=== PATIENT | male | born 1955 | race Caucasian/White ===

== ENCOUNTER 2023-10-28 14:51 | Outpatient (CLI) | payer MEDICARE, BC, SELFPAY ==
--- NOTE | ~2023-10-28 | XR_ITS ---
XR shoulder LT min 2V Ordering provider: NAIDA Sesay History: . lifting injury 10 days ago extensive bruising left humerus . Comparison: None. FINDINGS: BONES: possibility of fracture in the area of the insertion of the supraspinatus tendon cannot be exc luded. JOINT SPACES: The acromioclavicular joint shows osteoarthritic changes.. The glenohumeral joint is no rmal. Osteoarthritic changes in the area of the insertion of the supraspinatus tendon. SOFT TISSUES: Normal. IMPRESSION: Possible fracture in that area of the insertion of the supraspinatus tendon. Reviewed, dictated and finalized at location A.
--- NOTE | ~2023-10-28 | XR_ITS ---
XR humerus LT Ordering provider: NAIDA Sesay History: . lifting injury 10 days ago extensive bruising left humerus . Comparison: None. FINDINGS: BONES: Possible fracture in that area of the insertion of the supraspinatous tendon. JOINT SPACES: Mild osteoarthritic changes of the acromioclavicular joint. Degenerative changes at the insertion of the supraspinatous tendon. SOFT TISSUES: Normal. IMPRESSION: Possible fracture in the area of the insertion of the supraspinatus tendon. Reviewed, dictated and finalized at location A.
== END 2023-10-28 14:52 ==
PROVIDERS: PCP Physician Assistant; Visit Provider Physician Assistant
DX: M79.622 Pain in left upper arm (principal); X50.9XXA Other and unspecified overexertion or strenuous movements or postures, initial encounter
CPT/HCPCS: 73030; 73060

== ENCOUNTER 2023-11-24 14:19 | Outpatient (CLI) | payer MEDICARE, BC, SELFPAY ==
--- NOTE | ~2023-11-24 | XR_ITS ---
XR abdomen/kub 1V Ordering provider: Sherley Matt, PAC History: . right side abd pain hx of kidney stones . Comparison: None. FINDINGS: BOWEL: Nonobstructive bowel gas pattern. ORGANOMEGALY: None. SIGNIFICANT PATHOLOGIC CALCIFICATIONS: Tiny stone in the right kidney lower pole. OTHER: Bilateral hip arthroplasty. Degenerative changes of the spine. No free air is seen under the d iaphragm. IMPRESSION: NO ACUTE ABDOMINAL FINDINGS. Tiny stone in the right kidney lower pole. CT is better for evaluation. Reviewed, dictated and finalized at location A.
== END 2023-11-24 14:20 ==
LOC: MICIMG 14:23
PROVIDERS: PCP Physician Assistant; Visit Provider Physician Assistant
DX: R10.9 Unspecified abdominal pain (principal); Z87.442 Personal history of urinary calculi
CPT/HCPCS: 74018

== ENCOUNTER 2024-05-20 16:00 | Outpatient (CLI) | payer MEDICARE, BC, SELFPAY ==
--- NOTE | ~2024-05-20 | MR_ITS ---
EXAMINATION: MR shoulder RT wo con DATE: 05/20/2024 16:30 INDICATION: Right shoulder bicipital tendinitis with 4 months of right shoulder pain and limited rang e of motion TECHNIQUE: Magnetic resonance imaging (MRI) of the right shoulder was performed without intravenous c ontrast. Sequences included axial PD-weighted FS FSE, coronal oblique PD-weighted FS FSE, coronal obl ique T2-weighted FS FSE, sagittal PD-weighted FS FSE, and sagittal T1-weighted SE. COMPARISON: None. FINDINGS: Coracoacromial arch: The acromion undersurface is curved in morphology (type II). The coracoacromial ligament is normal. M oderate to severe acromioclavicular osteoarthritis with small inferiorly directed osteophytes. Rotator cuff: Moderate supraspinatus and infraspinatus tendinopathy. There is a mild partial-thickness articular si ded tear extending 1 cm AP along the superior facet footplate of the supraspinatus tendon and involvi ng approximately one third of the tendon thickness. There is a 5-10 mm medial retraction of the artic ular sided tear margin. The teres minor tendon is normal. Mild subscapularis tendinopathy without tea r. Normal rotator cuff muscle bulk and signal. Biceps tendon, glenoid labrum and glenohumeral cartilage: Fusiform thickening and mild increased signal consistent with moderate tendinopathy at the junction o f the internal extra-articular portions the long head biceps tendon. Tear of the inferior to anteroin ferior labrum which extends from the 7:00 position posteriorly to the 3:30 position anteriorly. There are small marginal osteophytes along the anteroinferior rim of the glenoid. Glenohumeral cartilage i s normal. Fluid: Physiologic amount of fluid in the glenohumeral joint and biceps tendon sheath. No loose osteochondr al bodies. Small amount of fluid in the subacromial/subdeltoid bursa consistent with mild bursitis. Bones: Normal marrow signal with no edema, fracture or abnormal marrow replacing process. There are cystic c hanges at the lesser and greater tuberosities likely related to chronic rotator cuff disease. IMPRESSION: 1. Moderate supraspinatus and infraspinatus tendinopathy with small mild partial-thickness articular sided tear along the superior facet footplate of the supraspinatus tendon. 2. Tear of the anteroinferior to inferior glenoid labrum. 3. 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 Reviewed, dictated and finalized at location B. ICAL REVIEW NURSE IMPRESSION: 1. Moderate supraspinatus and infraspinatus tendinopathy with small mild partia l-thickness articular sided tear along the superior facet footplate of the supr aspinatus tendon. 2. Tear of the anteroinferior to inferior glenoid labrum. 3. 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
== END 2024-05-20 16:01 | disposition home or self-care (01) ==
LOC: MICIMG 16:01
PROVIDERS: PCP Family Medicine; Visit Provider Orthopaedic Surgery
DX: M75.21 Bicipital tendinitis, right shoulder (principal); M19.011 Primary osteoarthritis, right shoulder
CPT/HCPCS: 73221

== ENCOUNTER 2024-06-25 12:26 | Outpatient (CLI) | payer MEDICARE, BC, SELFPAY ==
--- NOTE | 2024-06-25 12:51 | ECG_ITS ---
Test Date: 2024-06-25 13:09:07 Measurements Intervals [place] Rate: 74 P: 41 AL: 188 QRS: -4 QRSD: 88 T: 7 QT: 379 QTc: 422 Interpretive Statements BASELINE ARTIFACT, REDUCED ECG QUALITY SINUS RHYTHM POOR R-WAVE PROGRESSION NONSPECIFIC T-WAVE ABNORMALITY ABNORMAL ECG No previous ECG available for comparison Electronically Signed On 06-26-2024 15:25:50 SECURITIES COUNSELOR by Yinka Flowers M.D.
--- OUTSIDE RECORDS SUMMARY | 2024-06-25 12:56 | XMS_ITS | Clinical Summary ---
Author Organization [facility] Address [address] [place] [address] Care Team Providers Care Washing Machine Assembler Name Role Phone Unavailable Primary Care Provider Unavailabl e Social History Tobacco Use Types Packs/Day Years Used Date Smoking Tobacco: Never Assessed Sex and Gender Information Value Date Recorded Sex Assigned at Not on file Legal Sex Male 7:59 PM CDT Gender Identity Not on file Sexual Orientation Not on file Last Filed Vital Signs Vital Sign Reading Time Taken Comments Blood Pressure 118/74 10/31/2012 5:59 PM CDT Pulse 70 10/31/2012 5:59 PM CDT Temperature - - Respiratory Rate - - Oxygen Saturation - - Inhaled Oxygen Concentration - - Weight 106.6 kg (235 lb) 10/31/2012 5:59 PM CDT Height - - Body Mass Index - - Plan of Treatment Health Maintenance Due Date Last Done Comments Colorectal Cancer Screening Colonoscopy (10 Years) 1953 Hepatitis C 1971 DTaP, Tdap and Td Vaccines ( 1 - Tdap) 1972 Zoster Vaccines (1 of 2) 2003 Pneumococcal Vaccine: 65+ Ye ars (1 of 1 - PCV) 2018 COVID-19 Vaccine ( - 2023-2 5 season) 2023 Influenza Adult (#1) 2024 RSV Immunization or 60+ Years (1 - 1-dose 75+ series) 2028 Meningococcal B Vaccine Aged Out No l onger eligible based on patient's age to complete this topic Meningococcal Vaccine Aged Out No tamanna sharon eligible based on patient's age to complete this topic RSV Immunizations Under 20 Months Aged Out No longer eligible based on patient's age to complete this topic
--- OUTSIDE RECORDS SUMMARY | 2024-06-25 12:56 | XMS_ITS | Clinical Summary ---
Author Organization [facility] [employer] Address [address] [place] [address] Care Team Providers Care Vp Global Name Role Phone Unavailable Primary Care Provider Unavailabl e Source Comments [facility] [employer],non-owned Affiliates and Associated Physician Practices is amultiple site organization consisting of ambulatory clinics and hospital sitesin [place], [place], [place] and [place]. This disclosure is being madepursuant to the Care Everywhere program and may not contain all information available regarding this patient. Last updated 18.[facility] [employer] Allergies No known active allergies Medications * Be aware that medications may not be up to date on this document. Alwaysverify current medications with the patient. Medication Sig Dispensed Refills Start Date End Date Status amoxicillin (AMOXIL) 500 MG capsule Take 1 capsule by mouth pre-Procedure once for 4 doses Take 4 capsules 1 hour prior to procedure. 12 capsule 4 03/07/2017 Active meloxicam (MOBIC) 15 MG tablet TAKE 1 TABLET BY MOUTH ONCE DAILY FOR JOINT DAMAGE CAUSING PAIN AND LOSS OF FUNCTION 90 tablet 04/06/2019 Active Social History Tobacco Use Types Packs/Day Years Used Date Smoking Tobacco: Never Assessed Sex and Gender Information Value Date Recorded Sex Assigned at Not on file Gender Identity Not on file Sexual Orientation Not on file Plan of Treatment Health Maintenance Due Date Last Done Comments COLOGUARD (AGES 45-75) - COL ON CA SCREENING 1955 COLON MONITORING 1953 COLONOSCOPY - COLON CA SCREENING 1953 CT COLONOGRAPHY - COLON CA SCREENING 1953 Colorectal Cancer Screening 1953 FIT - COLON CA SCREENING 1953 FLEX SIG - COLON CA SCREENING 1953 LIPID TESTING 1953 HEPATITIS C SCREENING 04/29/1971 DTAP/TDAP/TD VACCINES (1 - Tdap) 1972 PNEUMOCOCCAL VACCINE 50+ (1 of 1 - PCV) 2003 ZOSTER VACCINE (1 of 2) 2003 COVID-19 VACCINE (2023-2 5 season) 2023 INFLUENZA VACCINE (#1) 2023 DEPRESSION SCREENING 04/21/2024 Respiratory Syncytial Virus (RSV) Vaccine Pt: or over 60 yrs (1 - 1-dose 75+ series) 2028 HEPATITIS B VACCINE Aged Out No longe r eligible based on patient's age to complete this topic HIB VACCINE Aged Out No longer eligi ble based on patient's age to complete this topic HPV VACCINE Aged Out No longer eligi ble based on patient's age to complete this topic MENINGOCOCCAL (Group B) VACCINE Aged Out No longer eligible based on patient's age to complete this topic MENINGOCOCCAL VACCINE Aged Out No tamanna sharon eligible based on patient's age to complete this topic
--- OUTSIDE RECORDS SUMMARY | 2024-06-25 12:56 | XMS_ITS | Patient Health Summary ---
Author Organization [facility] Address [address] [place] [address] Care Team Providers Care Windmill Technician Name Role Phone Unavailable Primary Care Provider Unavailabl e Note from [facility],non-owned Affiliates and Associated Physician Practices is amultiple site organization consisting of ambulatory clinics and hospital sitesin [place], [place], [place] and [place]. This disclosure is being madepursuant to the Care Everywhere program and may not contain all information available regarding this patient. Last updated 18.[facility] [employer] Allergies No known active allergies Medications * Be aware that medications may not be up to date on this document. Alwaysverify current medications with the patient. * amoxicillin (AMOXIL) 500 MG capsule(Started 03/07/2017) Take 1 capsule by mouth pre-Procedure once for 4 doses Take 4 capsules 1 hour prior to procedure. 4 refills remaining * meloxicam (MOBIC) 15 MG tablet(Started 04/06/2019) TAKE 1 TABLET BY MOUTH ONCE DAILY FOR JOINT DAMAGE CAUSING PAIN AND LOSS OF FUNCTION Social History Tobacco Use Types Packs/Day Years Used Date Smoking Tobacco: Never Assessed Sex and Gender Information Value Date Recorded Sex Assigned at Not on file Gender Identity Not on file Sexual Orientation Not on file Procedures * DERMATOPATHOLOGY(Performed 04/03/2016) Results * PATHOLOGY TISSUE FOR DERMATOLOGY (04/03/2016 12:00 AM DATA PROGRAMMER) Result CASE: [id number] PATIENT: АЛЕКСАНДР BUTTS PATHOLOGIC DIAGNOSIS: Left shoulder: BASAL CELL CARCINOMA, NODULAR TYPE PRESENT AT MARGIN CLINICAL DATA: BCC, non-healing. Check margins. GROSS DESCRIPTION: Received is one formalin filled container labeled with the patients name and designated left shoulder. The specimen consists of a shave measuring 4m7p6ib. The margin is inked green. Jar 0. MICROSCOPIC DESCRIPTION: Within the dermis there are aggregates of basaloid cells with a high nuclear to cytoplasmic ratio and peripheral palisading. This lesion is present at the margin of the specimen. Electronically signed out by Lesa Bello M.D. 04/05/2016 2:01:23PM [facility] Comment: Performed at: Dermatopathology Laboratory [facility] - Department of Dermatology [address] [place] [address], 5th [place] [address] Phone number: [phone] FAX: [phone] 04/03/2016 04/04/2016 Magda Espinosa MD LAB - PATHOLOGY/CYT OLOGY ORDERABLES [facility] [address] [place] [address]. 5th [place] [address], [facility] [phone]
--- OUTSIDE RECORDS SUMMARY | 2024-06-25 12:56 | XMS_ITS | Referral Summary ---
Author Organization [facility] [employer] Address [address] [place] [address] Care Team Providers Care Piercing Machine Operator Name Role Phone Rohan Kline MD Primary Care Provider [phone] Allergies No known active allergies Medications meloxicam (MOBIC) 15 mg tablet Take 15 mg by mouth daily 03/22/2021 Active losartan-hydroC HLOROthiazide (HYZAAR) 100-12.5 mg per tablet Take 1 tablet by mouth daily 03/19/2021 Active escitalopram (LEXAPRO) 20 mg tablet Take 20 mg by mouth every morning 03/22/2021 Active atorvastatin (LIPITOR) 10 mg tablet Take 10 mg by mouth daily 03/31/2021 Active multivitamin capsule Take 1 capsule by mouth daily Active Active Problems Problem Noted Date Diagnosed Date Tinnitus of both ears 05/04/2021 Sensorineural hearing loss (SNHL) of both ears 0 11/28/2015 Wound, open, ear 11/11/2015 History of basal cell carcinoma (BCC) 11/11/2015 Open wound of face 11/03/2015 Basal cell carcinoma (BCC) of skin of ear 2015 Social History Tobacco Use Types Packs/Day Years Used Date Smoking Tobacco: Former Smokeless Tobacco: Never Sex and Gender Information Value Date Recorded Sex Assigned at Not on file Legal Sex Male 3:23 AM HOTEL ATTENDANT Gender Identity Not on file Sexual Orientation Not on file Last Filed Vital Signs Vital Sign Reading Time Taken Comments Blood Pressure 151/94 01/22/2016 1:13 PM CDT Pulse 68 01/22/2016 1:13 PM CDT Temperature - - Respiratory Rate 17 05/04/2021 7:53 AM HOTEL ATTENDANT Oxygen Saturation 98% 08/22/2015 11:46 AM CDT Inhaled Oxygen Concentration - - Weight 113.4 kg (250 lb) 05/04/2021 7:53 AM HOTEL ATTENDANT Height 175.3 cm (5' 9 ) 05/04/2021 7:53 AM HOTEL ATTENDANT Body Mass Index 36.92 05/04/2021 7:53 AM HOTEL ATTENDANT Plan of Treatment Not on file Insurance MEDICARE [facility] Care Teams Piercing Machine Operator Relationship Specialty Start Date End Date Rohan Kline MD [address] [place] [id number] PCP - General Family Medicine 05/01/21
--- OUTSIDE RECORDS SUMMARY | 2024-06-25 12:56 | XMS_ITS | Clinical Summary ---
Author Organization [facility] [employer] Address [address] [place] [address] Care Team Providers Care Hunter Name Role Phone Rohan Kline MD Primary Care Provider [phone] Allergies No known active allergies Medications meloxicam [...] carcinoma (BCC) of skin of ear 2015 Surgical History Surgery Date Site/Laterality Comments [place] ARTHROPLASTY KNEE TIBIAL PLATEAU Knee Replacement - (Added by TW Conv) REPLACEMENT TOTAL KNEE BILATERAL Medical History Medical History Date Comments Anxiety disorder Anxiety - (Adde d by Conv) Bone fracture hand and collar bone Snoring Family History Medical History Relation Name Comments No Known Problems Father No Known Problems Mother Relation Name Status Comments Father Mother Social History Tobacco Use Types Packs/Day Years Used Date Smoking Tobacco: Former Smokeless Tobacco: Never Sex and Gender Information Value Date Recorded Sex Assigned at Not on file Legal Sex Male 3:23 AM BUNDLE SORTER Gender Identity Not on file Sexual Orientation Not on file Obstetrics History Last Filed Vital Signs Vital Sign Reading Time Taken Comments Blood Pressure 151/94 01/22/2016 1:13 PM CDT Pulse 68 01/22/2016 1:13 PM CDT Temperature - - Respiratory Rate 17 05/04/2021 7:53 AM BUNDLE SORTER Oxygen Saturation 98% 08/22/2015 11:46 AM CDT Inhaled Oxygen Concentration - - Weight 113.4 kg (250 lb) 05/04/2021 7:53 AM BUNDLE SORTER Height 175.3 cm (5' 9 ) 05/04/2021 7:53 AM BUNDLE SORTER Body Mass Index 36.92 05/04/2021 7:53 AM BUNDLE SORTER Plan of Treatment Not on file Insurance MEDICARE [facility] Care Teams Hunter Relationship Specialty Start Date End Date Rohan Kline MD [address] [place] [id number] PCP - General Family Medicine 05/01/21
--- OUTSIDE RECORDS SUMMARY | 2024-06-25 12:56 | XMS_ITS | Referral Summary ---
Author Organization [facility] Address [address] [place] [address] Care Team Providers Care Sql Server Dba Name Role Phone Unavailable Primary Care Provider Unavailabl e Source Comments [facility] [employer],non-owned Affiliates and Associated Physician Practices is amultiple site organization consisting of ambulatory clinics and hospital sitesin [place], [place], [place] and [place]. This disclosure is being madepursuant to the Care Everywhere program and may not contain all information available regarding this patient. Last updated 18.[facility] [employer] Allergies No known active allergies Medications * [...] Orientation Not on file Plan of Treatment Not on file
== END 2024-06-25 12:27 | disposition home or self-care (01) ==
LOC: ANHSURGERY 12:36
PROVIDERS: PCP Family Medicine; Visit Provider Orthopaedic Surgery
DX: Z01.818 Encounter for other preprocedural examination (principal); I10 Essential (primary) hypertension; R94.31 Abnormal electrocardiogram [ECG] [EKG]
CPT/HCPCS: 93005

== ENCOUNTER 2024-07-06 00:19 | Day surgery (SDC) | payer MEDICARE, BC, SELFPAY ==
--- NOTE | 2024-06-23 15:29 | PC.NURSE ---
Report to the Outpatient Waiting Room, entrance under the green pavilion located off [facility], at time _11:30 am on date _07/06/24 . Planned Procedure Time: __1 :30 pm .? Time changes happen often and if your time is changed the preop area will call you the afternoon before. - You and your visitor will be asked to self-screen and do not enter if you have any COVID symptoms. Please call surgeon if you need to reschedule. - A mask is optional within the hospital at this time. Patients may have clear liquids (water, carbonated beverages, clear teas, apple juice) until 3 hours prior to surgery ( 10 :30 am) with a maximum of 20 ounces. - No food from midnight until time of surgery and no smoking, or chewing tobacco (or any form of nicotine). No chewing gum, candy or mints. Take only the following medications with a SIP of water on the morning of surgery: ___escitalopram DO NOT STOP ANY OF YOUR OTHER PRESCRIPTION MEDICATIONS PRIOR TO SURGERY EXCEPT THE FOLLOWING Hold all vitamins and supplements for 3 days per anesthesiologist.last dose 07/02/24 Medications to discontinue per physician meloxicam 7 days pre op per gal last dose 06/28/24 may take tylenol if needed for pain Please no make-up, nail taiwanese, hairspray, perfume, deodorant, or body powder the day of surgery.? No jewelry (including any body piercings) or valuables the day of surgery, leave them at home.? Please take a shower or bath the night before, or the morning of, surgery with an antibacterial soap.? Wear comfortable, loose fitting clothing.? Children are encouraged to wear pajamas. - Jewelry must be removed prior to entering the operating room.? Rings and piercings that are not removed may be cut off. - The hospital will not accept responsibility for valuables.? - Please leave all valuables, including medications, at home the day of surgery. If you are going home after surgery, a licensed local company refrigerated truck driver must drive you home.? - NO public transportation without another adult if you receive anesthesia. - We recommend that an adult stay with you for 24 hours following discharge. - We also recommend that you do not drive, make important decision, drink alcoholic beverages, or take any drugs that were not prescribed by your health care provider for at least 24 hours after your discharge time. For Pediatric surgeries, we recommend two adults accompany the child home. Follow any additional instructions given to you from your surgeon. Telephone instructions given to __PATIENT and asked if any additional questions and then verbalized understanding. Patient advised to call surgeon office or pre surgery nurse liaison [phone] if any additional questions.
[2024-06-23 15:53] VITALS: BMI 38.7
[2024-07-06] VITALS (7 sets, daily range): BP systolic 108–151; BP diastolic 66–86; PULSE 59–66; RESP 12–14; TEMP 36.1–36.3; O2SAT 92–100
--- OUTSIDE RECORDS SUMMARY | 2024-07-06 00:24 | XMS_ITS | Clinical Summary ---
Author Organization [facility] Address [address] [place] [address] Care Team Providers Care Load Mixer Name Role Phone Unavailable Primary Care Provider [...]
--- OUTSIDE RECORDS SUMMARY | 2024-07-06 00:24 | XMS_ITS | Patient Health Summary ---
Author Organization [facility] Address [address] [place] [address] Care Team Providers Care Veterans Rehabilitation Counselor Name Role Phone Unavailable Primary Care Provider Unavailabl e Note from [facility],non-owned Affiliates and Associated Physician Practices is amultiple site organization consisting of ambulatory clinics and hospital sitesin [place], [place], [place] and [place]. This disclosure is being madepursuant to the Care Everywhere program and may not contain all information available regarding this patient. Last updated 18.[facility] [employer] Allergies No known active allergies Medications * [...] PATHOLOGY TISSUE FOR DERMATOLOGY (04/03/2016 12:00 AM CARBURETOR REPAIRER) Result CASE: [id number] PATIENT: АЛЕКСАНДР BUTTS PATHOLOGIC DIAGNOSIS: Left shoulder: BASAL CELL CARCINOMA, NODULAR TYPE PRESENT AT MARGIN CLINICAL DATA: BCC, non-healing. Check margins. GROSS DESCRIPTION: Received is one formalin filled container labeled with the patients name and designated left shoulder. The specimen consists of a shave measuring 6t6w6ds. The margin is inked green. Jar 0. MICROSCOPIC DESCRIPTION: Within the dermis there are aggregates of basaloid cells with a high nuclear to cytoplasmic ratio and peripheral palisading. This lesion is present at the margin of the specimen. Electronically signed out by Lesa Bello M.D. 04/05/2016 2:01:23PM [facility] Comment: Performed at: Dermatopathology Laboratory [facility] - Department of Dermatology [address] [place] [address], 5th [place] [address] Phone number: [phone] FAX: [phone] 04/03/2016 04/04/2016 Magda Espinosa MD LAB - PATHOLOGY/CYT OLOGY ORDERABLES [facility] [address] [place] [address]. [address] [place] [address], [facility] [phone]
--- OUTSIDE RECORDS SUMMARY | 2024-07-06 00:24 | XMS_ITS | Clinical Summary ---
Author Organization [facility] [email or web address] Address [address] [place] [address] Care Team Providers Care Sales Floor Manager Name Role Phone Unavailable Primary Care Provider Unavailabl e Source Comments [facility] [email or web address],non-owned Affiliates and Associated Physician Practices is amultiple site organization consisting of ambulatory clinics and hospital sitesin [place], [place], [place] and [place]. This disclosure is being madepursuant to the Care Everywhere program and may not contain all information available regarding this patient. Last updated 18.[facility] [email or web address] Allergies No known active allergies Medications * [...] to complete this topic MENINGOCOCCAL (Group B) VACC INE SHARED DECISION-MAKING Aged Out No longer eligibl e based on patient's age to complete this topic MENINGOCOCCAL GROUPS A/C/Y/W VACCINE Aged Out No longer eligible b ased on patient's age to complete this topic
--- OUTSIDE RECORDS SUMMARY | 2024-07-06 00:24 | XMS_ITS | Referral Summary ---
Author Organization [facility] Address [address] [place] [address] Care Team Providers Care Lot Porter Name Role Phone Unavailable Primary Care Provider Unavailabl e Source Comments [facility] [employer],non-owned Affiliates and Associated Physician Practices is amultiple site organization consisting of ambulatory clinics and hospital sitesin [place], [place], [place] and [place]. This disclosure is being madepursuant to the Care Everywhere program and may not contain all information available regarding this patient. Last updated 18.[facility] [employer] Allergies No known active allergies Medications * [...]
--- OUTSIDE RECORDS SUMMARY | 2024-07-06 00:24 | XMS_ITS | Clinical Summary ---
Author Organization [facility] [address] Address [address] [place] [address] Care Team Providers Care Annealer Name Role Phone Rohan Kline MD Primary Care Provider [phone] Allergies No known active allergies Medications meloxicam [...] 2015 Surgical History Surgery Date Site/Laterality Comments [place] ARTHROPLASTY KNEE TIBIAL PLATEAU Knee Replacement - [...] on file Legal Sex Male 3:23 AM SPORTS PHYSIOTHERAPIST Gender Identity Not on file Sexual Orientation Not on file Obstetrics History Last Filed Vital Signs Vital Sign Reading Time Taken Comments Blood Pressure 151/94 01/22/2016 1:13 PM CDT Pulse 68 01/22/2016 1:13 PM CDT Temperature - - Respiratory Rate 17 05/04/2021 7:53 AM SPORTS PHYSIOTHERAPIST Oxygen Saturation 98% 08/22/2015 11:46 AM CDT Inhaled Oxygen Concentration - - Weight 113.4 kg (250 lb) 05/04/2021 7:53 AM SPORTS PHYSIOTHERAPIST Height 175.3 cm (5' 9 ) 05/04/2021 7:53 AM SPORTS PHYSIOTHERAPIST Body Mass Index 36.92 05/04/2021 7:53 AM SPORTS PHYSIOTHERAPIST Plan of Treatment Not on file Insurance MEDICARE [facility] Care Teams Annealer Relationship Specialty Start Date End Date Rohan Kline MD [address] [place] [id number] PCP - General Family Medicine 05/01/21
--- OUTSIDE RECORDS SUMMARY | 2024-07-06 00:24 | XMS_ITS | Referral Summary ---
Author Organization [facility] [address] [place] Address [address] [place] [address] Care Team Providers Care Business Continuity Planner Name Role Phone Rohan Kline MD Primary Care Provider [phone] Allergies No known active allergies Medications meloxicam [...] on file Legal Sex Male 3:23 AM RESOURCE PARAPROFESSIONAL Gender Identity Not on file Sexual Orientation Not on file Last Filed Vital Signs Vital Sign Reading Time Taken Comments Blood Pressure 151/94 01/22/2016 1:13 PM CDT Pulse 68 01/22/2016 1:13 PM CDT Temperature - - Respiratory Rate 17 05/04/2021 7:53 AM RESOURCE PARAPROFESSIONAL Oxygen Saturation 98% 08/22/2015 11:46 AM CDT Inhaled Oxygen Concentration - - Weight 113.4 kg (250 lb) 05/04/2021 7:53 AM RESOURCE PARAPROFESSIONAL Height 175.3 cm (5' 9 ) 05/04/2021 7:53 AM RESOURCE PARAPROFESSIONAL Body Mass Index 36.92 05/04/2021 7:53 AM RESOURCE PARAPROFESSIONAL Plan of Treatment Not on file Insurance MEDICARE [facility] Care Teams Business Continuity Planner Relationship Specialty Start Date End Date Rohan Kline MD [address] [place] [id number] PCP - General Family Medicine 05/01/21
[2024-07-06] MEDS: EPINEPHrine HCL INJ 1 MG/ML AMPUL 3 MG IRRIGATION (09:01)
[2024-07-06] MEDS: KETOROLAC 15 MG/ML VIAL (*BKC) IV PUSH (12:30)
[2024-07-06] MEDS: LACTATED RINGERS 1,000 ML 30 ML IV CONT ×2 (12:30→16:06)
--- NOTE | 2024-07-06 12:53 | WPDANESPNB ---
Anes - Peripheral Nerve Block Date/Time: 07/06/24 12:53 I have discussed with the patient/family/POA the placement of a peripheral nerve block for post-operative pain management, including associated risks, benefits, complications, and side effects. Alternative methods of post-operative analgesia were detailed. Questions were solicited and answers provided to the satisfaction of the patient/family/POA. Time-Out: A pre-procedural Time-Out was completed immediately before starting the procedure and confirmed: Patient Identification, Site, Procedure, Patient Position and the Availability of Requisite Equipment. Clinical Indications: Acute post-operative pain management requested by the operative surgeon. Nerve Block Insertion Note Anes-nerve block: interscalene right Patient position: supine Skin prep: chlorhexidine Needle: 22 gauge, stimulating, insulated echogenic needle. Needle length: 50 mm Technique: ultrasound Injectate: bupivacaine 0.5% with epi 5 mcg/ml (20cc- no epi) Observations: tolerated well Complications: none Procedure start time:: 1309 Procedure end time:: 131
--- NOTE | 2024-07-06 12:53 | WPDANESEPPF ---
Anes - Initial Pre Proc Eval Procedure: Operation Date: 07/06/24 13:30 Proposed Procedures p Right Shoulder Arthroscopy, Biceps Tenodesis, with Subacromial Decompression, Debridement - Malachi Gallardo MD Date/Time: 07/06/24 12:53 Surgeon: Malachi Gallardo MD Pre Op Diagnosis: biceps tendinosis, biceps impingent syndrome Patient Data Age: 69 Gender: M Height: 1.73 m Weight: 115.7 kg Last Vital Signs Temp 36.3 C L 07/06/24 12:30 Pulse 66 07/06/24 12:30 Resp 14 07/06/24 12:30 BP 136/85 07/06/24 12:30 Pulse Ox 100 07/06/24 12:30 O2 Del Method Room Air 07/06/24 12:30 Allergies Allergy/AdvReac Type Severity Reaction Status Date / Time No Known Allergies Allergy Verified 07/06/24 12:49 Home Medications ?Medication ?Instructions ?Recorded ?Confirmed ?Type losartan 100 See Rx Instructions .Route 10/28/23 07/06/24 Rx mg-hydrochlorothiazide 12.5 mg .COMPLEX #90 tabs tablet atorvastatin 10 mg tablet See Rx Instructions .Route 02/05/24 07/06/24 Rx .COMPLEX #90 tabs meloxicam 15 mg tablet 15 mg PO DAILY 90 days #90 tabs 05/03/24 07/06/24 Rx escitalopram oxalate 20 mg tablet See Rx Instructions .Route 05/07/24 07/06/24 Rx .COMPLEX #90 tabs multivitamin (Daily Multi-Vitamin 1 tablet PO DAILY 06/23/24 07/06/24 History tablet) aspirin 81 mg tablet,delayed 81 mg PO BID 14 days #28 tabs 07/06/24 Rx release hydrocodone 5 mg-acetaminophen 325 1 - 2 tablet PO Q4-6H PRN pain 7 07/06/24 Rx mg tablet days #30 tabs Patient hx anesthesia problems: none Family hx anesthesia problems: none Results Review: All pre-operative results and documents have been reviewed as part of the pre-operative evaluation. [facility] Past Medical History Medical History Morbid obesity due to excess calories Pure hypercholesterolemia, unspecified Essential (primary) hypertension Generalized anxiety disorder Generalized osteoarthrosis, unspecified site Depression, major, recurrent, in partial remission Surgical History Surgical History History of cataract extraction 2022 History of total knee arthroplasty bilateral 12/02/2013 Hx of tonsillectomy 1960 H/O lithotripsy 06/2010 with ureteral stent History of ankle surgery left Status post shoulder replacement left History of total hip arthroplasty 11/2002 H/O inguinal hernia repair left 08/1987 H/O: knee surgery 1983, 1984 Family History Family History Father Alzheimer disease Mother Heart disease Osteoarthritis Grandparent , unknown No problems noted. Social History Social History Smoking packs per day: 0.5 Smoking cigarettes per day: 10.0 Years smoked: 10 Smoking pack-years: 5.00 Smoking status: Former smoker Tobacco type: cigarettes Smoking end date: 04/21/84 Alcohol intake: never Substance use: never Substance use type: does not use Do You Feel Safe in your Home?: Yes Lack of Transportation: No Lack of Food: Never True Current Housing: I Have Housing Concerned About Future Housing: No Difficulty Paying Gas/Electric Bills: No Difficulty Paying for Meds: No Currently Unemployed: YES Education: Trade/Vocational Certificate Difficulty w/ Childcare or Family Care: No Living arrangements: with family Occupation/Education: retired Gender identity (if verbalized by the patient): Male Sexual Orientation (if Verbalized by the Patient): Straight or Heterosexual Spiritual care concerns: No Anes - Eval Final PreProcedure Day of Procedure 07/06/24 12:53 Patient weight: obese Heart: regular rate and rhythm Lungs: clear to auscultation Airway: Mallampati scale class II Neurological: alert and oriented Last oral intake: >/= 8 hours ASA classification: III Emergent: no Anesthetic plan: proceed Anesthesia type and monitoring: general ETT and standard monitoring Results Review: All pre-operative results and documents have been reviewed as part of the pre-operative evaluation. Informed Consent: The patient's anesthetic plan and its attendant risks and benefits were discussed with the patient/family/POA. Questions were solicited and answers provided to the satisfaction of the patient/family/POA.
--- NOTE | 2024-07-06 12:59 | WPDHPUPDATE1 ---
History and Physical Update Update Date/Time: 07/06/24 12:59 History and Physical has been reviewed, including an updated exam of the patient. There are NO changes in the patient's condition. Risks, benefits, and alternatives have been discussed and questions answered. Patient agrees to proceed with procedure.
[2024-07-06] MEDS: ceFAZolin 2 GM/D5W 50 ML 2 GM/50 ML BAG IVPB (13:18)
[2024-07-06] MEDS: TRANEXAMIC ACID 1,000 MG/10 ML AMPUL 1000 MG IV PUSH (15:55)
--- NOTE | 2024-07-06 16:05 | W.PM.PROC2 ---
Procedure Note - Detailed Date of Procedure 07/06/24 Pre-op Diagnosis Right shoulder Biceps tendinosis, impingement syndrome, rotator cuff tendinitis Post-op Diagnosis Other (1. Partial-thickness rotator cuff tear 2. Subacromial impingement 3. Biceps tendinosis ) Procedure Performed Right shoulder 1. Arthroscopic rotator cuff repair 2. Arthroscopic subacromial decompression 3. Arthroscopic biceps tenodesis Surgeon Malachi Gallardo MD Sales And Events Coordinator Tiara Varma PA-C Anesthesia General and Regional ( interscalene block) Findings High-grade cuff tendinosis noted on the MRI along with biceps split tearing in the intra-articular area. SLAP tear and early degenerative changes with chondromalacia. The arthritis was fairly mild with mild chondromalacia on the central glenoid. The labrum was fairly healthy except for the SLAP area which was inflamed. The biceps tendinosis was severe. Minimal low-grade fraying of the subscapularis. Mid grade 50% tearing of the central supraspinatus tendon. Mild degenerative tendon changes on the articular side. The bursal side appeared normal. The partial supraspinatus tear was repaired with the large Regeneten graft. 5 JAI soft tissue anchors and 2 peek bone anchors were placed. Biceps was repaired with the SwiveLock anchor using the loop and tack system from [employer]. Subacromial decompression performed with the arthroscopic bur. The accessory lateral portal off of the deltoid continued to bleed during closure. The bleeding was controlled with cautery and Surgicel. Nylon mattress sutures were also used. Description of Procedure Preoperative antibiotics were given. An interscalene block was administered in the preoperative area. The patient was bought brought to the operating room. A general anesthetic was administered. The patient was carefully positioned in the beach chair position. The head and neck were carefully positioned. The non operative extremity was also carefully positioned. The shoulder was prepped and draped in the usual sterile fashion. Examination was performed. Standard posterior and anterior arthroscopic portals were established. Inflow achieved with the arthroscopic pump using saline and epinephrine. The glenohumeral joint was carefully inspected. Glenoid arthritis was mild. The humerus looked good. The labrum was healthy except for the SLAP area which was fraying. The biceps was severely tendinotic and fraying with torn portions. The loop and tack system was used to secure the biceps. It was released from the labrum and secured with a SwiveLock anchor. The subscapularis was lightly debrided. The articular supraspinatus had 50% tearing. This was marked and inspected on the bursal side. Attention was turned to the subacromial space. A complete bursectomy was performed. The supraspinatus and infraspinatus looked quite healthy. There was some mild fraying and softening of the supraspinatus. The anterolateral acromial spur was exposed with the radiofrequency probe and debrided with the arthroscopic bur to a flat surface. This decompressed the space nicely. It was elected to repair the rotator cuff using the Regeneten collagen implant with 5 JAI soft tissue anchors and 2 peek bone anchors. The arthroscopic instruments were removed. The wounds were closed with 3-0 Monocryl subcuticular suture and steri strips. The superior lateral portal required electrocautery and Surgicel to control bleeding. There were no complications. A sling was applied and the patient brought to the recovery room. Physician insurance sales assistant, Tiara Varma PA-C, required for surgery; including patient positioning, draping, arthroscopic camera operation, maintaining instrument position, suture retrieval, wound closure, and dressing and sling placement. Implants [employer]rex 4.75 mm BioComposite SwiveLock anchor. [employer] Regeneten collagen implant. Five JAI soft tissue anchors. Two peek bone anchors. Estimated Blood Loss 20 Pathology None sent Complications No immediate complications Condition Stable Disposition PACU [facility] Billing Surgery - Charge Forward: Surgery Billing
== END 2024-07-06 17:44 | disposition home or self-care (01) ==
PROVIDERS: PCP Family Medicine; Visit Provider Orthopaedic Surgery
PROC: (CPT 29805; principal; 2024-07-06 13:30)
DX: S43.431A Superior glenoid labrum lesion of right shoulder, initial encounter (principal); M94.211 Chondromalacia, right shoulder; M19.011 Primary osteoarthritis, right shoulder; M67.813 Other specified disorders of tendon, right shoulder; M25.811 Other specified joint disorders, right shoulder; G89.18 Other acute postprocedural pain; I10 Essential (primary) hypertension; E78.00 Pure hypercholesterolemia, unspecified; F41.9 Anxiety disorder, unspecified; F33.8 Other recurrent depressive disorders; X50.0XXA Overexertion from strenuous movement or load, initial encounter; E66.9 Obesity, unspecified; Z68.39 Body mass index [BMI] 39.0-39.9, adult; Z79.82 Long term (current) use of aspirin; Z79.891 Long term (current) use of opiate analgesic; Z98.890 Other specified postprocedural states; Z96.0 Presence of urogenital implants; Z87.891 Personal history of nicotine dependence; Z82.49 Family history of ischemic heart disease and other diseases of the circulatory system
CPT/HCPCS: 64415; 29827; 29826; 29828; A4565; A9270; C1713; J0171; J0690; J1100; J1885; J2250; J2405; J2704; J3010; J7120

== ENCOUNTER 2024-07-17 18:51 | Emergency (ER) | payer MEDICARE, BC, SELFPAY ==
--- OUTSIDE RECORDS SUMMARY | 2024-07-17 18:53 | XMS_ITS | Clinical Summary ---
Author Organization [facility] Address [facility] [place] [address] Care Team Providers Care Transport Tank Technician Name Role Phone Unavailable Primary Care [...] of 1 - PCV) 2018 COVID-19 Vaccine (2023-2 5 season) 2023 RSV Immunization or 60+ Years (1 - [...]
--- OUTSIDE RECORDS SUMMARY | 2024-07-17 18:53 | XMS_ITS | Clinical Summary ---
Author Organization [facility] [address] Address [address] [place] [address] Care Team Providers Care Client Application Support Engineer Name Role Phone Rohan Kline MD Primary Care Provider [phone] Allergies No known active allergies Medications meloxicam [...] 2015 Surgical History Surgery Date Site/Laterality Comments [place] ARTHROPLASTY KNEE TIBIAL PLATEAU Knee Replacement - [...] on file Legal Sex Male 3:23 AM EXTENSION COURSE COUNSELOR Gender Identity Not on file Sexual Orientation Not on file Obstetrics History Last Filed Vital Signs Vital Sign Reading Time Taken Comments Blood Pressure 151/94 01/22/2016 1:13 PM CDT Pulse 68 01/22/2016 1:13 PM CDT Temperature - - Respiratory Rate 17 05/04/2021 7:53 AM EXTENSION COURSE COUNSELOR Oxygen Saturation 98% 08/22/2015 11:46 AM CDT Inhaled Oxygen Concentration - - Weight 113.4 kg (250 lb) 05/04/2021 7:53 AM EXTENSION COURSE COUNSELOR Height 175.3 cm (5' 9 ) 05/04/2021 7:53 AM EXTENSION COURSE COUNSELOR Body Mass Index 36.92 05/04/2021 7:53 AM EXTENSION COURSE COUNSELOR Plan of Treatment Not on file Insurance MEDICARE [facility] Care Teams Client Application Support Engineer Relationship Specialty Start Date End Date Rohan Kline MD [address] [place] [id number] PCP - General Family Medicine 05/01/21
--- OUTSIDE RECORDS SUMMARY | 2024-07-17 18:53 | XMS_ITS | Clinical Summary ---
Author Organization [facility] Address [address] [place] [address] Care Team Providers Care Nursing Associate Name Role Phone Unavailable Primary Care Provider Unavailabl e Source Comments [facility],non-owned Affiliates and Associated Physician Practices is amultiple site organization consisting of ambulatory clinics and hospital sitesin [place], [place], [place] and [place]. This disclosure is being madepursuant to the Care Everywhere program and may not contain all information available regarding this patient. Last updated 18.[facility] Allergies No known active allergies Medications * [...]
--- OUTSIDE RECORDS SUMMARY | 2024-07-17 18:53 | XMS_ITS | Referral Summary ---
Author Organization [facility] [address] [address] Address [address] [place] [address] Care Team Providers Care Helpdesk Administrator Name Role Phone Rohan Kline MD Primary Care Provider [phone] Allergies No known active allergies Medications meloxicam [...] on file Legal Sex Male 3:23 AM PHARMACEUTICAL SERVICE REPRESENTATIVE Gender Identity Not on file Sexual Orientation Not on file Last Filed Vital Signs Vital Sign Reading Time Taken Comments Blood Pressure 151/94 01/22/2016 1:13 PM CDT Pulse 68 01/22/2016 1:13 PM CDT Temperature - - Respiratory Rate 17 05/04/2021 7:53 AM PHARMACEUTICAL SERVICE REPRESENTATIVE Oxygen Saturation 98% 08/22/2015 11:46 AM CDT Inhaled Oxygen Concentration - - Weight 113.4 kg (250 lb) 05/04/2021 7:53 AM PHARMACEUTICAL SERVICE REPRESENTATIVE Height 175.3 cm (5' 9 ) 05/04/2021 7:53 AM PHARMACEUTICAL SERVICE REPRESENTATIVE Body Mass Index 36.92 05/04/2021 7:53 AM PHARMACEUTICAL SERVICE REPRESENTATIVE Plan of Treatment Not on file Insurance MEDICARE [facility] Care Teams Helpdesk Administrator Relationship Specialty Start Date End Date Rohan Kline MD [address] [place] [id number] PCP - General Family Medicine 05/01/21
--- NOTE | 2024-07-17 18:56 | ED.GENADULT ---
HPI - General Adult General Chief complaint: Ear Stated complaint: hearing problems Time Seen by Provider: 07/17/24 18:55 Source: patient Mode of arrival: ambulatory Limitations: no limitations History of Present Illness HPI narrative: 69-year-old male patient presents to the [facility] with complaints of loss of hearing to the right ear. Patient states he has trouble hearing anyway but he would recently went to his doctor and was told that he had some ear wax. Patient was given some Debrox and he has been using the Debrox but today used a Q-tip to try and get the ear wax out and now say states that is completely clogged up. Related Data Home Medications ?Medication ?Instructions ?Recorded ?Confirmed ?Last Taken ?Type multivitamin (Daily Multi-Vitamin 1 tablet PO DAILY 06/23/24 07/06/24 07/01/24 History tablet) Allergies Allergy/AdvReac Type Severity Reaction Status Date / Time No Known Allergies Allergy Verified 07/17/24 19:01 Review of Systems Review of Systems: CONSTITUTIONAL: Denies fever, chills, or sweats. EYES: Denies visual changes, redness, or discharge. ENT: Denies rhinorrhea, congestion, sore throat, or otalgia. Positive loss of hearing to bring CARDIOVASCULAR: Denies chest pain, palpitations, or edema. RESPIRATORY: Denies cough or dyspnea. GASTROINTESTINAL: Denies abdominal pain, nausea, vomiting, or diarrhea. GENITOURINARY: Denies dysuria or hematuria. SKIN: Denies rash or itching. MUSCULOSKELETAL: Denies back pain, joint pain, or myalgia. NEUROLOGIC: Denies headache, numbness, or weakness. PSYCHIATRIC: Denies anxiety or depression. [facility] Past Medical History Medical History Morbid obesity due to excess calories Pure hypercholesterolemia, unspecified Essential (primary) hypertension Generalized anxiety disorder Generalized osteoarthrosis, unspecified site Depression, major, recurrent, in partial remission Surgical History Surgical History History of cataract extraction 2022 History of total knee arthroplasty bilateral 12/02/2013 Hx of tonsillectomy 1960 H/O lithotripsy 06/2010 with ureteral stent History of ankle surgery left Status post shoulder replacement left History of total hip arthroplasty 11/2002 H/O inguinal hernia repair left 08/1987 H/O: knee surgery 1983, 1984 Family History Family History Father Alzheimer disease Mother Heart disease Osteoarthritis Grandparent , unknown No problems noted. Social History Social History Smoking packs per day: 0.5 Smoking cigarettes per day: 10.0 Years smoked: 10 Smoking pack-years: 5.00 Smoking status: Former smoker Tobacco type: cigarettes Smoking end date: 04/21/84 Alcohol intake: never Substance use: never Substance use type: does not use Do You Feel Safe in your Home?: Yes Lack of Transportation: No Lack of Food: Never True Current Housing: I Have Housing Concerned About Future Housing: No Difficulty Paying Gas/Electric Bills: No Difficulty Paying for Meds: No Currently Unemployed: YES Education: Trade/Vocational Certificate Difficulty w/ Childcare or Family Care: No Living arrangements: with family Occupation/Education: retired Gender identity (if verbalized by the patient): Male Sexual Orientation (if Verbalized by the Patient): Straight or Heterosexual Spiritual care concerns: No Comments At the time of my signature I agree with nursing past medical history, surgical, social, and family history. There is no relevant family history pertinent to the presenting complaint. Exam Narrative: GENERAL: Well-appearing, well-nourished, and in no acute distress. HEAD: Normocephalic, atraumatic. EYES: PERRLA and EOMI. ENT: Nares clear, no rhinorrhea or epistaxis. Mucous membranes moist. posterior pharynx with no erythema, tonsillar enlargement. The left TM is clear no foreign bodies the canal. Unable to visualize the right TM due to cerumen impaction to the canal. NECK: Supple. No lymphadenopathy CHEST: Clear to auscultation. No respiratory distress. HEART: Regular rate and rhythm. No murmur heard. Normal peripheral pulses. ABDOMEN: Soft, nontender, nondistended, normal active bowel sounds. EXTREMITIES: Normal range of motion. No edema. SKIN: Warm, dry, no rash. NEURO: No focal deficits. Alert and oriented x3. Course Course Level of Care: Express Care Visit Vital Signs Vital signs: Vital Signs Temperature 36.6 C 07/17/24 19:01 Pulse Rate 65 07/17/24 19:01 Respiratory Rate 18 07/17/24 19:01 Blood Pressure 140/91 H 07/17/24 19:01 Pulse Oximetry 99 07/17/24 19:01 Oxygen Delivery Room Air 07/17/24 19:01 Temperature 36.6 C 07/17/24 19:01 Pulse Rate 65 07/17/24 19:01 Respiratory Rate 18 07/17/24 19:01 Blood Pressure 140/91 H 07/17/24 19:01 Pulse Oximetry 99 07/17/24 19:01 Oxygen Delivery Room Air 07/17/24 19:01 Vital signs reviewed. Procedures Ear Wax Removal Right Ear: Ear Wax Removal Date: 07/17/24 Ear Wax Removal Time: 19:18 Cerumenolytic Used: 5-10% Sodium Bicarb solution Results: Re-examined: some cerumen remains TM Examination: TM(s) intact, normal appearance Ear Canal Exam: atraumatic Patient Tolerated Procedure: well Complications: no problems Technique: ear canal curetted Additional Comments: The patient had cerumen removed from the R ear canal with warm water and peroxide irrigation and a loop in order to visualize the TM. The TM has no perforations or erythema? post procedure.? There were no complications. Medical Decision Making MDM Narrative Medical decision making narrative: Discussed with patient that we got the majority of earwax out of the right ear. A little bit does remain and encouraged him to continue using the Debrox drops at home to soften it up and may irrigate it with the bulb syringe that he was given by his doctor. Patient verbalized understanding denies any other questions or concerns at this time. Differential Diagnosis Differential Diagnosis: differential diagnosis: Otitis media, otitis externa, perforated TM, infection of the outer ear, foreign body or cerumen impaction, ruptured TM, acute mastoiditis, ligament otitis externa, dehydration, pneumonia, sepsis, dental or intraoral infection, TMJ dysfunction Vital Signs Vital Signs: Vital Signs Temperature 36.6 C 07/17/24 19:01 Pulse Rate 65 07/17/24 19:01 Respiratory Rate 18 07/17/24 19:01 Blood Pressure 140/91 H 07/17/24 19:01 Pulse Oximetry 99 07/17/24 19:01 Oxygen Delivery Room Air 07/17/24 19:01 Temperature 36.6 C 07/17/24 19:01 Pulse Rate 65 07/17/24 19:01 Respiratory Rate 18 07/17/24 19:01 Blood Pressure 140/91 H 07/17/24 19:01 Pulse Oximetry 99 07/17/24 19:01 Oxygen Delivery Room Air 07/17/24 19:01 Discharge Plan Discharge Clinical Impression: Hearing loss due to cerumen impaction Patient Disposition: Home, Self-Care Condition: Stable Instructions: Antibiotic Form, Carbamide Peroxide (Into the ear) Additional Instructions: Wax softening eardrops may be obtained without a prescription. Gently clean the outer part of the ear with a cotton swab. Do NOT place the cotton swab or anything inside your ear canal. This increases the risk of damaging your eardrum. Contact your primary care provider or go to the emergency department if: Have a fever Have trouble hearing or ringing in the ear You feel dizzy You have discharge or blood coming out of her ear Your ear pain does not go away or gets worse Patient Language: Omani Prescriptions: No Action losartan-hydrochlorothiazide 100-12.5 mg tablet See Rx Instructions .ROUTE .COMPLEX Qty: 90 1RF Dose Instruction: TAKE 1 TABLET BY MOUTH EVERY DAY Rx Instructions: TAKE 1 TABLET BY MOUTH EVERY DAY multivitamin [Daily Multi-Vitamin] Tablet 1 tablet PO DAILY hydrocodone-acetaminophen 5-325 mg tablet 1 - 2 tablet PO Q4-6H MDD 6 PRN (Reason: pain) 7 Days Qty: 30 0RF aspirin 81 mg tablet,delayed release (DR/EC) 81 mg PO BID 14 Days Qty: 28 0RF atorvastatin 10 mg tablet See Rx Instructions .ROUTE .COMPLEX Qty: 90 1RF Dose Instruction: TAKE 1 TABLET BY MOUTH EVERY DAY AT BEDTIME Rx Instructions: TAKE 1 TABLET BY MOUTH EVERY DAY AT BEDTIME meloxicam 15 mg tablet 15 mg PO DAILY 90 Days Qty: 90 1RF escitalopram oxalate 20 mg tablet See Rx Instructions .ROUTE .COMPLEX Qty: 90 1RF Dose Instruction: TAKE 1 TABLET BY MOUTH DAILY Rx Instructions: TAKE 1 TABLET BY MOUTH DAILY Follow-up/Referrals: UNKNOWN,DOCTOR [Primary Care Provider] - Time of Disposition: 19:16
[2024-07-17 19:01] VITALS: BP 140/91; PULSE 65; RESP 18; TEMP 36.6; O2SAT 99
== END 2024-07-17 19:19 | disposition home or self-care (01) ==
PROVIDERS: Emergency Provider Nurse Practitioner Family
DX: H61.21 Impacted cerumen, right ear (principal); E78.00 Pure hypercholesterolemia, unspecified; I10 Essential (primary) hypertension; M15.9 Polyosteoarthritis, unspecified; F41.1 Generalized anxiety disorder; F32.4 Major depressive disorder, single episode, in partial remission; E66.01 Morbid (severe) obesity due to excess calories; Z68.37 Body mass index [BMI] 37.0-37.9, adult; Z96.653 Presence of artificial knee joint, bilateral; Z96.612 Presence of left artificial shoulder joint
CPT/HCPCS: 69210; 99212; A9270; G0463

== ENCOUNTER 2024-08-25 07:23 | Outpatient (RCR) | payer MEDICARE, BC, SELFPAY ==
[2024-07-29 09:00] VITALS: BMI 38.8
== END 2024-10-18 16:23 | disposition home or self-care (01) ==
LOC: ANHWOC 07:23
PROVIDERS: Visit Provider Orthopaedic Surgery
DX: S41.001A Unspecified open wound of right shoulder, initial encounter (principal); Z48.01 Encounter for change or removal of surgical wound dressing
CPT/HCPCS: 99212; 99213; 99215; G0463